=== PATIENT | female | born 1930 | race Caucasian/White ===

== ENCOUNTER 2018-04-19 03:05 | Inpatient (IN) ==
[2018-04-19] MEDS ORDERED: ONDANSETRON 4 MG/2 ML VIAL ONE (03:31)
[2018-04-19] MEDS ORDERED: HYDROmorphone 2 MG/1 ML VIAL ONE (03:32)
[2018-04-19] MEDS ORDERED: ONDANSETRON 4 MG/2 ML VIAL IV STA (03:46)
[2018-04-19] MEDS ORDERED: HYDROmorphone 2 MG/1 ML VIAL IV STA (03:46)
[2018-04-19] MEDS ORDERED: SODIUM CHLORIDE 0.9% 500 ML IV STA (03:46)
[2018-04-19 03:52] LABS: Basophils % 0.5 % (0.0-0.8); Eosinophils # 0.3 10*3/uL (0.0-0.87); Eosinophils % 4.4 % (0.00-10.9); Hematocrit 31.2 VOL% (35.7-47.0); Hemoglobin 10.2 GM/DL (12.0-16.0); Immature Granulocytes % 0.5 %; Immature Granulocytes Absolute 0.04 #; Lymphocytes # 1.7 10*3/uL (1.4-4.0); Mean Corpuscular HGB Conc 32.7 GM/DL (32-36); Mean Corpuscular Hemoglobin 28 PG (27-34); Mean Corpuscular Volume 86.4 FL (87-102); Mean Platelet Volume 9.2 FL (9.6-12.0); Monocytes # 0.6 10*3/uL (0.11-0.8); Monocytes % 7.9 % (1.7-12.7); Neutrophils # 4.9 10*3/uL (1.4-7.4); Neutrophils % 64.7 % (38.7-73.9); Platelet Count 292 T/CUMM (130-400); Red Blood Count 3.61 MC/CUMM (3.8-5.5); Red Cell Distribution Width 18.3 % (9.3-17.3); White Blood Count 7.6 T/CUMM (4-12)
[2018-04-19 03:58] LABS: PT Patient Result 10.6 SECS
[2018-04-19 04:08] LABS: Alanine Aminotransferase 21 U/L (13-56); Albumin 2.8 G/DL (3.4-5.0); Alkaline Phosphatase 157 U/L (45-117); Aspartate Amino Transferase 28 U/L (0-37); Bilirubin,Total < 0.39 MG/DL (0.2-1.0); Blood Urea Nitrogen 40 MG/DL (7-18); Calcium 7.9 MG/DL (8.5-10.1); Glucose 123 MG/DL (74-106); Osmolality,Calculated 293.1 MOS/KG (273-304); Potassium 4.4 MMOL/L (3.5-5.1); Sodium 142 MMOL/L (136-145)
[2018-04-19] MEDS ORDERED: MEPERIDINE 50 MG/1 ML VIAL ONE (04:32)
[2018-04-19] MEDS ORDERED: MEPERIDINE 50 MG/1 ML VIAL IV STA (04:33)
[2018-04-19 05:17] LABS: Apearance,Urine CLEAR (Clear); Bilirubin,Urine Negative (Negative); Blood, Urine Small mg/dL (Negative); Glucose,Urine (UA) Negative (Negative); Hyaline Casts,Urine 1 /LPF (0-3); Ketones,Urine Negative (Negative); Nitrite,Urine Negative (Negative); Protein,Urine Negative; RBC,Urine 2 /HPF (0-4); Squamous Epithelial Cell,Urine Occasional /HPF (0-10); Urine Color Straw (Yellow); Urine Specific Gravity 1.008 (1.001-1.035); Urine Urobilinogen < 2.0 EU/DL (0.2-1.0); WBC,Urine 1 /HPF (0-6)
[2018-04-19] MEDS ORDERED: MAGNESIUM HYDROXIDE SUSP 30 ML UDCUP PO PRN ×2 (06:03)
[2018-04-19] MEDS ORDERED: HYDROmorphone 2 MG/1 ML VIAL IV PRN ×2 (06:03→14:36)
[2018-04-19] MEDS ORDERED: MEPERIDINE 25 MG/1 ML VIAL IV PRN (06:03)
[2018-04-19] MEDS ORDERED: ACETAMINOPHEN 325 MG TABLET PO PRN (06:03)
[2018-04-19] MEDS ORDERED: ONDANSETRON 4 MG/2 ML VIAL IV PRN (06:03)
[2018-04-19] MEDS ORDERED: NIFEdipine 10 MG CAPSULE PO PRN (06:03)
[2018-04-19] MEDS ORDERED: hydrOXYzine HCL 10 MG TABLET PO PRN (06:03)
[2018-04-19] MEDS: SODIUM CHLORIDE 0.9% 1,000 ML IV SCH ×3 (07:25→22:05)
[2018-04-19] MEDS ORDERED: ceFAZolin 1,000 MG in SYRINGE 1 EACH IV ONE (07:32)
[2018-04-19] MEDS ORDERED: VANCOMYCIN INJ 1,000 MG in SODIUM CHLORIDE 0.9% 250 ML IV ONE (07:33)
[2018-04-19] MEDS: LEVOTHYROXINE 100 MCG TABLET PO SCH (07:37)
[2018-04-19] MEDS ORDERED: DOCUSATE SODIUM 100 MG CAPSULE PO SCH (09:00)
[2018-04-19] MEDS ORDERED: PANTOPRAZOLE 40 MG VIAL IV SCH (09:00)
[2018-04-19] MEDS ORDERED: ENOXAPARIN 30 MG/0.3 ML SYRINGE SUBCUT SCH (09:00)
[2018-04-19] MEDS ORDERED: ERGOCALCIFEROL 50,000 UNIT CAPSULE PO SCH (09:00)
[2018-04-19] MEDS: LUBIPROSTONE 8 MCG CAPSULE PO SCH ×2 (10:28→21:59)
[2018-04-19] MEDS: CALCIUM (CARBONATE)/VITAMIN D 600 MG-400 UNIT TABLET PO SCH ×2 (10:28→22:00)
[2018-04-19] MEDS: DOCUSATE SODIUM 100 MG CAPSULE PO SCH ×2 (10:29→22:00)
[2018-04-19] MEDS: GABAPENTIN 400 MG CAPSULE PO SCH ×3 (10:29→21:59)
[2018-04-19] MEDS: PANTOPRAZOLE 40 MG TABLET PO SCH (10:29)
[2018-04-19] MEDS: FUROSEMIDE 40 MG TABLET PO SCH (10:29)
[2018-04-19] MEDS ORDERED: TUBERCULIN SKIN TEST 0.1 ML SYRINGE INTRADERM ONE (11:00)
[2018-04-19] MEDS ORDERED: TRANEXAMIC ACID 1,000 MG/10 ML VIAL ONE ×2 (12:56→17:12)
[2018-04-19] MEDS ORDERED: BACITRACIN OINT 0.9 GM PACK TOP ONE (12:56)
[2018-04-19] MEDS ORDERED: ROPIVACAINE 0.5% 30 ML VIAL ONE (16:47)
[2018-04-19] MEDS ORDERED: PROPOFOL 200 MG/20 ML VIAL IV ONE (17:11)
[2018-04-19] MEDS ORDERED: ROCURONIUM 100 MG/10 ML VIAL IV ONE (17:12)
[2018-04-19] MEDS ORDERED: PHENYLEPHRINE 10 MG/1 ML VIAL IV ONE (17:12)
[2018-04-19] MEDS ORDERED: NEOSTIGMINE 10 MG/10 ML VIAL ONE (17:12)
[2018-04-19] MEDS ORDERED: GLYCOPYRROLATE 0.4 MG/2 ML VIAL ONE (17:12)
[2018-04-19] MEDS ORDERED: PHENYLEPHRINE 1 MG/10 ML SYRINGE IV ONE (17:12)
[2018-04-19] MEDS ORDERED: ACETAMINOPHEN 1,000 MG/100 ML VIAL IV ONE (17:12)
[2018-04-19] MEDS ORDERED: LACTATED RINGERS 1,000 ML IV ONE (17:12)
[2018-04-19] MEDS: ceFAZolin 1,000 MG in SYRINGE 1 EACH IV SCH (18:41)
[2018-04-19] MEDS: SIMVASTATIN 40 MG TABLET PO SCH (22:00)
[2018-04-19] MEDS: AMITRIPTYLINE 25 MG TABLET PO SCH (22:00)
[2018-04-19] MEDS: ZALEPLON 5 MG CAPSULE PO SCH (22:00)
[2018-04-20] MEDS ORDERED: ceFAZolin 1,000 MG in SYRINGE 1 EACH IV SCH (04:30)
[2018-04-20] MEDS: ceFAZolin 1,000 MG in SYRINGE 1 EACH IV SCH (04:57)
[2018-04-20] MEDS: LEVOTHYROXINE 100 MCG TABLET PO SCH (05:54)
[2018-04-20] MEDS: SODIUM CHLORIDE 0.9% 1,000 ML IV SCH (05:54)
[2018-04-20 05:57] LABS: Calcium 7.3 MG/DL (8.5-10.1); Osmolality,Calculated 297.6 MOS/KG (273-304); Potassium 3.8 MMOL/L (3.5-5.1)
[2018-04-20 06:01] LABS: Bilirubin,Total 1.1 MG/DL (0.2-1.0); Calcium 7.2 MG/DL (8.5-10.1); Osmolality,Calculated 296.7 MOS/KG (273-304); Potassium 3.8 MMOL/L (3.5-5.1)
[2018-04-20 06:35] LABS: Basophils % 0.4 % (0.0-0.8); Eosinophils # 0.2 10*3/uL (0.0-0.87); Eosinophils % 3.1 % (0.00-10.9); Hematocrit 20.5 VOL% (35.7-47.0); Immature Granulocytes % 0.7 %; Immature Granulocytes Absolute 0.05 #; Lymphocytes # 0.8 10*3/uL (1.4-4.0); Lymphocytes % 10.8 % (21.3-54.2); Mean Corpuscular HGB Conc 31.7 GM/DL (32-36); Mean Corpuscular Hemoglobin 28 PG (27-34); Mean Corpuscular Volume 89.5 FL (87-102); Mean Platelet Volume 9.4 FL (9.6-12.0); Monocytes # 0.6 10*3/uL (0.11-0.8); Monocytes % 7.9 % (1.7-12.7); Neutrophils # 5.8 10*3/uL (1.4-7.4); Neutrophils % 77.1 % (38.7-73.9); Red Cell Distribution Width 17.7 % (9.3-17.3); White Blood Count 7.5 T/CUMM (4-12)
[2018-04-20 06:36] LABS: Hemoglobin 6.5 GM/DL (12.0-16.0); Platelet Count 182 T/CUMM (130-400); Red Blood Count 2.29 MC/CUMM (3.8-5.5)
[2018-04-20] MEDS ORDERED: SODIUM CHLORIDE 0.9% 1,000 ML IV PRN (07:58)
[2018-04-20] MEDS ORDERED: FUROSEMIDE 40 MG/4 ML VIAL IV PRN (07:58)
[2018-04-20] MEDS: CALCIUM (CARBONATE)/VITAMIN D 600 MG-400 UNIT TABLET PO SCH ×2 (08:37→21:43)
[2018-04-20] MEDS: ENOXAPARIN 30 MG/0.3 ML SYRINGE SUBCUT SCH ×2 (08:37→21:47)
[2018-04-20] MEDS: PANTOPRAZOLE 40 MG TABLET PO SCH (08:37)
[2018-04-20] MEDS: LUBIPROSTONE 8 MCG CAPSULE PO SCH ×2 (08:37→21:43)
[2018-04-20] MEDS: FUROSEMIDE 40 MG TABLET PO SCH (08:37)
[2018-04-20] MEDS: DOCUSATE SODIUM 100 MG CAPSULE PO SCH ×2 (08:37→21:44)
[2018-04-20] MEDS: GABAPENTIN 400 MG CAPSULE PO SCH ×3 (08:37→21:44)
[2018-04-20] MEDS ORDERED: ONDANSETRON ODT 4 MG TABLET PO ONE (15:42)
[2018-04-20] MEDS: AMITRIPTYLINE 25 MG TABLET PO SCH (21:44)
[2018-04-20] MEDS: ZALEPLON 5 MG CAPSULE PO SCH (21:44)
[2018-04-20] MEDS: SIMVASTATIN 40 MG TABLET PO SCH (22:01)
[2018-04-21 05:46] LABS: Basophils % 0.2 % (0.0-0.8); Eosinophils # 0.1 10*3/uL (0.0-0.87); Eosinophils % 0.7 % (0.00-10.9); Hematocrit 26.4 VOL% (35.7-47.0); Immature Granulocytes % 0.8 %; Lymphocytes # 1.1 10*3/uL (1.4-4.0); Lymphocytes % 8.6 % (21.3-54.2); Mean Corpuscular HGB Conc 32.6 GM/DL (32-36); Mean Corpuscular Hemoglobin 27 PG (27-34); Mean Platelet Volume 9.3 FL (9.6-12.0); Monocytes # 1.1 10*3/uL (0.11-0.8); Monocytes % 8.5 % (1.7-12.7); Neutrophils # 10.4 10*3/uL (1.4-7.4); Neutrophils % 81.2 % (38.7-73.9); Platelet Count 163 T/CUMM (130-400)
[2018-04-21 05:47] LABS: Red Blood Count 3.18 MC/CUMM (3.8-5.5); White Blood Count 12.8 T/CUMM (4-12)
[2018-04-21 05:48] LABS: Hemoglobin 8.6 GM/DL (12.0-16.0)
[2018-04-21] MEDS: LEVOTHYROXINE 100 MCG TABLET PO SCH (06:29)
[2018-04-21] MEDS: FUROSEMIDE 40 MG TABLET PO SCH (09:50)
[2018-04-21] MEDS: LUBIPROSTONE 8 MCG CAPSULE PO SCH ×2 (09:50→21:39)
[2018-04-21] MEDS: PANTOPRAZOLE 40 MG TABLET PO SCH (09:50)
[2018-04-21] MEDS: DOCUSATE SODIUM 100 MG CAPSULE PO SCH ×2 (09:50→21:40)
[2018-04-21] MEDS: CALCIUM (CARBONATE)/VITAMIN D 600 MG-400 UNIT TABLET PO SCH ×2 (09:50→21:39)
[2018-04-21] MEDS: GABAPENTIN 400 MG CAPSULE PO SCH ×3 (09:50→21:40)
[2018-04-21] MEDS: ENOXAPARIN 30 MG/0.3 ML SYRINGE SUBCUT SCH ×2 (09:51→21:39)
[2018-04-21] MEDS: AMITRIPTYLINE 25 MG TABLET PO SCH (21:39)
[2018-04-21] MEDS: ZALEPLON 5 MG CAPSULE PO SCH (21:39)
[2018-04-21] MEDS: SIMVASTATIN 40 MG TABLET PO SCH (21:40)
[2018-04-22] MEDS: SKIN HEALING OINT (AQUAPHOR) 50 GM TUBE TOP SCH ×2 (00:26→09:42)
[2018-04-22 05:51] LABS: Basophils % 0.2 % (0.0-0.8); Eosinophils # 0.3 10*3/uL (0.0-0.87); Hematocrit 25.2 VOL% (35.7-47.0); Hemoglobin 8.3 GM/DL (12.0-16.0); Immature Granulocytes Absolute 0.13 #; Lymphocytes # 1.2 10*3/uL (1.4-4.0); Lymphocytes % 9.4 % (21.3-54.2); Mean Corpuscular HGB Conc 32.9 GM/DL (32-36); Mean Corpuscular Hemoglobin 27 PG (27-34); Mean Corpuscular Volume 82.1 FL (87-102); Mean Platelet Volume 9.3 FL (9.6-12.0); Monocytes # 0.9 10*3/uL (0.11-0.8); Monocytes % 7.3 % (1.7-12.7); Neutrophils # 9.9 10*3/uL (1.4-7.4); Neutrophils % 80.1 % (38.7-73.9); Platelet Count 177 T/CUMM (130-400); Red Blood Count 3.07 MC/CUMM (3.8-5.5); Red Cell Distribution Width 19.2 % (9.3-17.3); White Blood Count 12.4 T/CUMM (4-12)
[2018-04-22] MEDS: LEVOTHYROXINE 100 MCG TABLET PO SCH (06:02)
[2018-04-22] MEDS ORDERED: BISACODYL 10 MG SUPP RECTAL ONE (09:37)
[2018-04-22] MEDS: ENOXAPARIN 30 MG/0.3 ML SYRINGE SUBCUT SCH (09:41)
[2018-04-22] MEDS: CALCIUM (CARBONATE)/VITAMIN D 600 MG-400 UNIT TABLET PO SCH (09:42)
[2018-04-22] MEDS: FUROSEMIDE 40 MG TABLET PO SCH (09:42)
[2018-04-22] MEDS: DOCUSATE SODIUM 100 MG CAPSULE PO SCH (09:42)
[2018-04-22] MEDS: GABAPENTIN 400 MG CAPSULE PO SCH (09:42)
[2018-04-22] MEDS: LUBIPROSTONE 8 MCG CAPSULE PO SCH (09:45)
[2018-04-22] MEDS: PANTOPRAZOLE 40 MG TABLET PO SCH (09:55)
[2018-04-22 11:51] VITALS: BP 158/94
== END 2018-04-22 11:55 | DRG 470 ==
LOC: N.ED 03:05 → N.EDINP 04:31 → N.3E 05:31
PROVIDERS: ADMIT Family Medicine; ATTEND Family Medicine